=== PATIENT | male | born 1935 | race Caucasian/White ===

== ENCOUNTER 2017-12-22 01:09 | Observation (INO) ==
[2017-12-22] MEDS ORDERED: Naloxone 0.4 MG/ML INJ IVP PRN (06:26)
[2017-12-22] MEDS ORDERED: Nitroglycerin 0.4 MG TAB.SUBL SL PRN (06:28)
--- NOTE | 2017-12-22 06:30 | Internal Med History&Physical ---
Date of Encounter: 12/22/17 Time of Encounter: 06:15 Internal Medicine - H&P: HPI Chief complaint: Chest pain Admitted From: Hospital to Hospital Transfer Plans for Post Hospital Care: Home History of present illness: Mr. Morrison is a 82 year old male with past medical history of CADx 3 stents 2010 , hypertension, right nephrectomy due to kidney cancer presented to [facility] as a transfer from [facility] due to chest pain concerning for ACS. Initial troponin negative. Initial EKG: HR 91, ST depression leads II, III, AVF, V3-V6. Repeat EKG: HR 65, no ST or T wave changes, no indication of ischemia. WBC 11.9, hemoglobin 12.2, platelets 174, sodium 137, potassium 4.3, creatinine 1.97, BMP 97, Ddimer negative. Chest x-ray negative for acute cardiopulmonary process. Upon my examination of the patient he was alert and oriented times 3. He reported that the chest pressure began at 0630 in the morning on his drive to work. He said pain is similar to when he had cardiac stents placed in 2010. It was retrosternal with radiation to his left arm and back. He described it as a dull pressure that was worsened with exertion and relieved by 2 nitroglycerin. He also took 2 aspirin. Pain lasted about 25 minutes. He had associated shortness of breath. During his work day he took 2 more nitroglycerin for chest pressure. When he got home from work he had the increased dull chest pressure again where he took 2 more nitroglycerin and 2 aspirin then called EMS. He denied fever, chills, syncope, change in vision, diaphoresis, palpitations, nausea, vomiting, abdominal pain, dysuria. He reported that he has had head congestion and upper respiratory infection that he has been taking Levaquin since Tuesday. Upon my examination he does have reproducible chest tenderness but it is different from the dull chest pressure that he has been having. His resident services manager is Dr. Fraser. He has been compliant with his cardiac medications. He is a non-smoker, no alcohol, or drug use. He has no known family cardiac history. He is a full code. 10/28/2016 nuclear stress test: negative for ischemia or infarct 10/28/2016 TTE: EF 65%, moderate LV diastolic dysfunction, mild mitral regurgitation Past Med Surg Social Fam HX - Past Medical History Attestation: Yes The following information was validated with the patient. Source: patient Medical history: coronary artery disease, hyperlipidemia, hypertension Additional medical history: neuropathy, vertigo - Past Surgical History Surgical History: angioplasty/stent Additional surgical history: Right nephrectomy - Social History Smoking Status: Never smoker Smokeless Tobacco Status: No Alcohol use: none Drug use: none - Family History Father Name: Nas Morrison Living Status: Age at : 68 Cause of : chf Hx Family Cardiac Disorders: Yes Hx Family Respiratory Disorders: No Hx Family Cancer: No Hx Family GI Disorders: No Hx Family Genitourinary Disorders: No Hx Family Endocrine Disorder: No Hx Family Musculoskeletal Disorders: No Hx Family Neuromuscular Disorders: No Hx Family Neurologic Disorders: No Internal Medicine - H&P: Meds Ambien 5 mg PO HS 12/22/17 [History] Atorvastatin 25 mg PO BID 12/22/17 [History] Carvedilol [Coreg] 25 mg PO BID 12/22/17 [History] Clopidogrel [Plavix] 75 mg PO DAILY 12/22/17 [History] Losartan 25 mg PO DAILY 12/22/17 [History] Nitroglycerin 0.4 mg SL PRN PRN 12/22/17 [History] 3 Allergy/AdvReac Type Severity Reaction Status Date / Time iodine AdvReac Swelling Verified 10/28/16 11:15 of Lip/Tongue/Throat shellfish derived AdvReac Swelling Verified 10/28/16 11:15 of Lip/Tongue/Throat All Systems PM: A 10-system review of systems was performed and is negative for pertinent findings except as documented above in the HPI. - Constitutional Constitutional: no chills, no fever(s) - EENT Eyes: no blurry vision, no change in vision - Cardiovascular Cardiovascular ROS IM: chest pain, dyspnea on exertion, no diaphoresis, no edema , no lightheadedness, no orthopnea, no paroxysmal nocturnal dyspnea, no syncope - Respiratory Respiratory: no cough, no dyspnea, no wheezing - Gastrointestinal Gastrointestinal: no abdominal pain, no melena, no nausea, no vomiting - Genitourinary Genitourinary ROS male: no dysuria - Musculoskeletal Musculoskeletal ROS IM: no arthralgias - Integumentary Integumentary IM: no erythema, no new lesions - Neurological Neurological ROS: no dizziness, no headache(s) - Psychiatric Psychiatric: no confusion - Endocrine Endocrine IM: no fatigue - Constitutional Vitals: Temp Pulse Resp BP Pulse Ox 97.6 F 70 16 165/92 98 12/22/17 03:33 12/22/17 03:33 12/22/17 03:12/22/17 03:12/22/17 03:33 General appearance: Present: A&O X 3, pleasant, no acute distress - Head Head exam: Present: atraumatic, normocephalic - Eye Eye exam: Present: normal appearance, conjuntiva pink - Respiratory Respiratory exam: Present: chest wall tenderness, CTAB. Absent: rales, respiratory distress, rhonchi, wheezes - Cardiovascular Cardiovascular exam: Present: RRR, +S1, +S2. Absent: systolic murmur - GI/Abdominal GI/Abdominal exam: Present: normal bowel sounds, soft. Absent: firm, guarding, tenderness - Extremities Exam Extremities exam: Present: normal inspection. Absent: pedal edema, tenderness - Neurological Exam Neurological exam: Present: alert, oriented X3 - Psychiatric Psychiatric exam: Present: normal affect, normal mood - Skin Skin exam: Present: dry, intact - Assessment and plan (1) Chest pain Current Visit: Yes Status: Acute Assessment and plan: Typical chest pain concerning for unstable angina. Transfer from [facility] due to chest pain concerning for ACS. Chest pain is pressure like in center of chest with radiation to left arm and back. Similar to when he had stents placed. Worsened with exertion and relieved by Nitro. Lasting 25 minutes. Associated shortness of breath. He has been compliant with his medications. -Initial troponin negative. Initial EKG: HR 91, ST depression leads II, III, AVF, V3-V6. Repeat EKG: HR 65, no ST or T wave changes, no indication of ischemia. -PMH: CADx 3 stents 2010, hypertension -His resident services manager is Dr. Fraser -10/28/2016 nuclear stress test: negative for ischemia or infarct -10/28/2016 TTE: EF 65%, moderate LV diastolic dysfunction, mild mitral regurgitation Plan -trending troponin -echocardiogram ordered -nuclear stress test ordered -nitroglycerin PRN -continue home Plavix, Lipitor -aspirin 81 mg -NPO Qualifiers: Chest pain type: unspecified Qualified Code(s): R07.9 - Chest pain, unspecified (2) Elevated WBC count Current Visit: Yes Status: Acute Assessment and plan: Elevated WBC 11.9 likely secondary to patient reporting he is had a sinus infection and has been taking Levaquin since Tuesday prescribed by his PCP. 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 -Will continue the patient's course treatment of Levaquin so not to interrupt the antibiotic treatment and cause resistance. -Will continue to monitor WBC Qualifiers: Leukocytosis type: unspecified Qualified Code(s): D72.829 - Elevated white blood cell count, unspecified (3) Elevated serum creatinine Current Visit: Yes Status: Acute Assessment and plan: Elevated serum creatinine 1.97 (at baseline) likely due to right nephrectomy. -Will continue to monitor renal function -avoid nephrotoxic agents -monitor I&O (4) Coronary artery disease Current Visit: Yes Status: Acute Assessment and plan: History of coronary artery disease with 3 stents, 2010. 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 Samuels. (7) DVT prophylaxis Current Visit: Yes Status: Acute Assessment and plan: Heparin SQ - Time Spent With Patient Total time spent is greater than 50% in coordination of care (as documented) at patient's floor/unit and/or counseling patient:
[2017-12-22 07:04] LABS: Basophils % 0.2 %; Eosinophils % 0.1 %; Hematocrit 35.7 % (37.5-50.1); Hemoglobin 11.9 g/dL (12.9-16.9); Immature Granulocytes % 0.7 % (0-4); Lymphocytes # 1.8 K/mcL (0.6-4.6); Lymphocytes % 19.9 %; Mean Corpuscular HGB Conc 33.3 g/dL (31.6-35.5); Mean Corpuscular Hemoglobin 30.1 pg (28.0-33.3); Mean Corpuscular Volume 90.4 fL (83.0-100.0); Mean Platelet Volume 9.5 fL (9.4-12.4); Monocytes # 0.6 K/mcL (0.0-1.3); Monocytes % 7.1 %; Neutrophils # 6.3 K/mcL (1.6-8.9); Platelet Count 139 K/mcL (140-400); Red Blood Count 3.95 M/mcL (4.19-5.50); Red Cell Distribution Width 13.2 % (11.5-14.5)
[2017-12-22 07:21] LABS: Calcium 9.2 mg/dL (8.6-10.3); Potassium 4.3 mEq/L (3.5-5.1)
[2017-12-22] MEDS: Aspirin 81 MG TAB.CHEW PO SCH (09:31)
--- NOTE | 2017-12-22 13:42 | Internal Med Progress Note ---
<Cosme West - Last Filed: 12/22/17 16:54> Date of Encounter: 12/22/17 Time of Encounter: 10:00 - Assessment and plan (1) Chest pain Current Visit: Yes Status: Acute Assessment and plan: - Has had a multiple history of retrosternal chest pain in the past secondary to extertion. Likely unstable angina - Initial workup in the ER was positive for ST depression in II, IIII and aVF, V3-V6. Troponins are negative. Repeat EKG was unremarkable. - Patient on telemetry, supplementary oxygen, IV access. - Continue home Plavix, Lipitor, beta kenyon, aspirin 81 mg. Nitroglycerin PRN. . -Stress test tomorrow. NPO after midnight. Qualifiers: Chest pain type: unspecified Qualified Code(s): R07.9 - Chest pain, unspecified (2) Coronary artery disease Current Visit: Yes Status: Acute Assessment and plan: - Patient has a history of coronary artery disease, s/p 3 stents in 2010. - He continues to be on ASA 81, Plavix, statins. - His prior stress test was negative. He's getting another stress test tomorrow. Qualifiers: Qualified Code(s): I25.10 - Atherosclerotic heart disease of [place] coronary artery without angina pectoris (3) Hypertension Current Visit: Yes Status: Acute Assessment and plan: - Patient has a chronic history of hypertension. - Takes Losartan for blood pressure control at home. - We will keep him on his home antihypertensive medications. - Qualifiers: Hypertension type: essential hypertension Qualified Code(s): I10 - Essential (primary) hypertension (4) Elevated serum creatinine Current Visit: Yes Status: Acute Assessment and plan: -Will continue to monitor renal function -avoid nephrotoxic agents -monitor I&O (5) DVT prophylaxis Current Visit: Yes Status: Acute Assessment and plan: Heparin SQ - Time Spent With Patient Total time spent is greater than 50% in coordination of care (as documented) at patient's floor/unit and/or counseling patient: - Subjective Interval history: Mr. Morrison is a 82-year-old male with a past medical history of CAD 3 stents in 2010, hypertension, hyperlipidemia is admitted to [facility] because of retrosternal chest pain that began yesterday when he was going to work. Patient has had multiple symptoms like these in the past but endorses that most of the time the symptoms have resolved after nitroglycerin. However this time patient endorses that he took 2 nitroglycerin for the pain that lasted 25 minutes when he was driving to work, and then took 2 more nitroglycerin while at work. He also took 2 aspirin ,and owing to perisistant discomfot, he called the EMS. He takes losartan for his blood pressure, is compliant on his beta kenyon aspirin and Plavix. 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 Patient is a nonsmoker, no alcohol, or drug abuse. Today he endorses no acute distress. He endorses his chest pain is better than what it was yesterday, he denies diaphoresis, palpitations, belly pain. - Constitutional Vitals: Temp Pulse Resp BP Pulse Ox 97.9 F 62 16 163/86 98 12/22/17 11:02 12/22/17 11:02 12/22/17 11:02 12/22/17 11:02 12/22/17 11:02 General appearance: Present: A&O X 3, pleasant, no acute distress - Head Head exam: Present: atraumatic, normal inspection, normocephalic - Respiratory Additional comments: Clear to auscultation bilaterally, no wheezing, rhonchi or rales. - Cardiovascular Additional comments: Regular rate and rhythm, no gallops, murmurs or rubs. - GI/Abdominal Additional comments: No belly pain, no guarding or rebound tenderness, belly soft and nontender. - Extremities Exam Additional comments: Pulses symmetrical bilaterally, skin warm, range of motion appropriate for his condition. Internal Medicine: Result - Labs CBC & Chem 7: 12/22/17 06:50 12/22/17 06:50 Labs: Short CBC 12/22/17 Range/Units 06:50 WBC 8.8 (4.3-11.1) K/mcL Hgb 11.9 L (12.9-16.9) g/dL Hct 35.7 L (37.5-50.1) % Plt Count 139 L (140-400) K/mcL Neutrophils # 6.3 (1.6-8.9) K/mcL BMP 12/22/17 06:50 Sodium 141 Potassium 4.3 Chloride 108 H Carbon Dioxide 21 L BUN 38 H Creatinine 1.69 H Glucose 99 Calcium 9.2 Cardiac Enzymes 12/22/17 Range/Units 06:50 Troponin I < 0.03 (< 0.04) ng/mL Consult Discharge Plan - Plan Referrals: Anibal De Luna MD [Primary Care Provider] - <Akira Kerns - Last Filed: 12/22/17 17:41> Date of Encounter: 12/22/17 - Assessment and plan (1) Chest pain Current Visit: Yes Status: Acute Qualifiers: Chest pain type: unspecified Qualified Code(s): R07.9 - Chest pain, unspecified (2) Coronary artery disease Current Visit: Yes Status: Acute Qualifiers: Qualified Code(s): I25.10 - Atherosclerotic heart disease of [place] coronary artery without angina pectoris (3) Hypertension Current Visit: Yes Status: Acute Qualifiers: Hypertension type: essential hypertension Qualified Code(s): I10 - Essential (primary) hypertension (4) Elevated serum creatinine Current Visit: Yes Status: Acute (5) DVT prophylaxis Current Visit: Yes Status: Acute - Time Spent With Patient Total time spent is greater than 50% in coordination of care (as documented) at patient's floor/unit and/or counseling patient: - Constitutional Vitals: Temp Pulse Resp BP Pulse Ox 97.9 F 66 16 142/65 97 12/22/17 16:04 12/22/17 16:04 12/22/17 16:04 12/22/17 16:04 12/22/17 16:04 Internal Medicine: Result - Labs CBC & Chem 7: 12/22/17 06:50 12/22/17 06:50 Labs: Short CBC 12/22/17 Range/Units 06:50 WBC 8.8 (4.3-11.1) K/mcL Hgb 11.9 L (12.9-16.9) g/dL Hct 35.7 L (37.5-50.1) % Plt Count 139 L (140-400) K/mcL Neutrophils # 6.3 (1.6-8.9) K/mcL BMP 12/22/17 06:50 Sodium 141 Potassium 4.3 Chloride 108 H Carbon Dioxide 21 L BUN 38 H Creatinine 1.69 H Glucose 99 Calcium 9.2 Cardiac Enzymes 12/22/17 12/22/17 Range/Units 06:50 12:42 Troponin I < 0.03 < 0.03 (< 0.04) ng/mL - Impressions Impressions Echocardiogram 12/22/17 06:28 Impressions: LVEF 60-65%. Normal LV chamber size and function. Mild concentric left ventricular hypertrophy. Mild left ventricular diastolic dysfunction. Normal right ventricular structure and function. Mild mitral regurgitation. No evidence of pulmonary hypertension. Left Ventricular Wall Motion: Rest Echo Findings All wall segments showed normal motion. Findings: Study Quality * Technically adequate exam. ECG Findings * Normal sinus rhythm. Left Ventricle * LVEF 60-65%. * Normal LV chamber size and function. * Mild concentric left ventricular hypertrophy. * Mild left ventricular diastolic dysfunction. Right Ventricle * Normal right ventricular structure and function. Left Atrium * Moderately dilated left atrium. Right Atrium * Mildly dilated right atrium. Aortic Valve * Trileaflet aortic valve. * Mildly calcified aortic valve leaflets. * Trace aortic regurgitation. * No aortic stenosis. Mitral Valve * Mild mitral annular calcification * Mildly thickened mitral valve leaflets. * Mild mitral regurgitation. * No mitral stenosis. Tricuspid Valve * Normal tricuspid valve structure and function. * Trace tricuspid regurgitation. * No evidence of pulmonary hypertension. Pulmonic Valve * Normal pulmonic valve structure and function. * No pulmonic regurgitation. Aorta * Normally sized aortic root. Pericardium * The pericardium appears normal. IVC * Normal IVC dimensions and inspiratory collapse. Pulmonary Artery * Normal visualized portions of the main pulmonary artery. - Attending Attestation I examined this patient and my medical decision-making was reviewed with the Resident Physician Dr. West. I agree with the documented findings, disposition and treatment plan as described except to the extent set forth below. Mr. Morrison is a 82 year old male with past medical history of CADx 3 stents 2010 , hypertension, right nephrectomy due to kidney cancer presented to [facility] as a transfer from [facility] due to chest pain concerning for ACS. Initial troponin negative. Pt denied any active CP now. Gen: A, A, O x 3 Chest: Diminished BS b/l Heart: S1S2+ RRR a/p 1. Acute CP need to r.o ACS So far neg trop scheduled for stress test in AM 2. CKD-3 Stable cr 3. HTN resumed home meds
[2017-12-22] MEDS: *HR* Heparin 5,000 UNIT/ML VIAL SQ SCH ×2 (15:03→21:32)
[2017-12-22] MEDS: Acetaminophen 325 MG TABLET PO PRN (23:15)
[2017-12-23] MEDS: *HR* Heparin 5,000 UNIT/ML VIAL SQ SCH (06:17)
[2017-12-23] MEDS ORDERED: Regadenoson 0.4 MG/5 ML SYRINGE IVP ONE (06:39)
[2017-12-23 07:18] LABS: Basophils # 0.1 K/mcL (0.0-0.2); Basophils % 0.8 %; Eosinophils # 0.1 K/mcL (0.0-0.6); Eosinophils % 1.4 %; Hematocrit 40.9 % (37.5-50.1); Hemoglobin 13.4 g/dL (12.9-16.9); Immature Granulocytes % 0.6 % (0-4); Lymphocytes # 2.2 K/mcL (0.6-4.6); Lymphocytes % 34.7 %; Mean Corpuscular HGB Conc 32.8 g/dL (31.6-35.5); Mean Corpuscular Hemoglobin 29.7 pg (28.0-33.3); Mean Corpuscular Volume 90.7 fL (83.0-100.0); Mean Platelet Volume 9.5 fL (9.4-12.4); Monocytes # 0.5 K/mcL (0.0-1.3); Monocytes % 7.4 %; Neutrophils # 3.5 K/mcL (1.6-8.9); Platelet Count 163 K/mcL (140-400); Red Blood Count 4.51 M/mcL (4.19-5.50); Red Cell Distribution Width 13.3 % (11.5-14.5); Segmented Neutrophils % 55.1 %
[2017-12-23 07:33] LABS: Calcium 9.3 mg/dL (8.6-10.3); Potassium 4.2 mEq/L (3.5-5.1)
[2017-12-23] MEDS ORDERED: [Fish Oil 1,000 Mg PO SCH (09:00)
[2017-12-23] MEDS ORDERED: Cholecalciferol (D-3) 1,000 UNIT TABLET PO SCH (09:00)
--- NOTE | 2017-12-23 11:44 | Discharge Summary ---
<Cosme West - Last Filed: 12/23/17 17:34> - NOTES TO OUTPATIENT PROVIDER Notes to Outpatient Provider: - f/u with cardioloigst on a regular basisi. - continue his beta kenyon, statins, ASA. 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 CKD3 Orders not resulted at time of discharge: Pending orders 12/23/17 06:00 NM mega perf SPECT multi [NM] Routine Date of Encounter: 12/23/17 Time of Encounter: 10:00 - Discharge Diagnosis (1) Chest pain Priority: Primary Status: Acute Qualifiers: Chest pain type: unspecified Qualified Code(s): R07.9 - Chest pain, unspecified (2) Coronary artery disease Priority: Secondary Status: Acute (3) Hypertension Priority: Secondary Status: Acute Qualifiers: Hypertension type: essential hypertension Qualified Code(s): I10 - Essential (primary) hypertension (4) DVT prophylaxis Priority: Secondary Status: Acute (5) CKD (chronic kidney disease) Priority: Secondary Status: Acute Qualifiers: Qualified Code(s): N18.3 - Chronic kidney disease, stage 3 (moderate) Hospital course: Mr. Morrison is a 82 year old male with a past medical history of CAD status post stents, hypertension, right nephrectomy secondary to kidney cancer who came as a transfer from [facility] because of retrosternal chest pain and pressure that started at 6:30 in the morning when he was going to work. Patient has had multiple symptoms like these in the past but endorses that most of the time the symptoms have resolved after nitroglycerin. However this time patient endorses that he took 2 nitroglycerin for the pain that lasted 25 minutes when he was driving to work, and then took 2 more nitroglycerin while at work. Patient's troponin were negative on admission, initial EKG was positive for ST depression in II, III and aVF , V3-V6 , but the repeat EKG was unremarkable. During the course of his hospital stay, patient underwent the pharmacologic stress test, to which the patient had a normal hemodynamic response. There was no evidence for ischemia at the level of heart rate achieved. Patient did not endorse any acute distress, chest pain during the course of the hospital stay. Patient has been instructed to continue with his Plavix, beta kenyon, aspirin and Lipitor. He has also been told to follow up with his brick grader as an outpatient. He has also been instructed to follow-up with his gift shop assistant for his CKD3. Patient has been advised to eat plenty of fruits, vegetables and whole grains, and avoid too much salt in his diet. As then instructed to RTC ever has similar symptoms in the future, he should immediately present to the ED. - Time Spent with Patient Total time spent providing and/or coordinating discharge services: - Discharge Medications Prescriptions: Tramadol HCl [Ultram] 50 mg PO TID PRN 7 Days #20 tab PRN Reason: Pain Home Medications: Aspirin [Lo-Dose Aspirin EC] 81 mg PO DAILY 12/22/17 [History] Atorvastatin [Lipitor] 40 mg PO HS 12/22/17 [History] Carvedilol [Coreg] 25 mg PO BID 12/22/17 [History] Cholecalciferol (D-3) [Vitamin D] 5,000 unit PO DAILY 12/22/17 [History] Clopidogrel [Plavix] 75 mg PO DAILY 12/22/17 [History] Losartan/Hydrochlorothiazide [Losartan-Hctz 100-25 mg Tab] 1 tab PO DAILY [History] Nitroglycerin [Nitrostat] 0.4 mg SL Q5M PRN MDD 3 DOSES CALL 911 12/22/17 [ History] [place]-3/Dha/Epa/Fish Oil [Fish Oil 1,000 mg Softgel] 1 cap PO DAILY 12/22/17 [ History] Zolpidem [Ambien] 10 mg PO HS 12/22/17 [History] Losartan [Cozaar] 25 mg PO DAILY tablet 12/23/17 [Rx] Tramadol HCl [Ultram] 50 mg PO TID PRN 7 Days #20 tab 12/23/17 [Rx] Allergies/Adverse Reactions: 3 Allergy/AdvReac Type Severity Reaction Status Date / Time iodine AdvReac Swelling Verified 10/28/16 11:15 of Lip/Tongue/Throat shellfish derived AdvReac Swelling Verified 10/28/16 11:15 of Lip/Tongue/Throat Date of admission: 12/22/17 03:06 Primary care physician: Anibal De Luna MD - Constitutional Vitals: Temp Pulse Resp BP Pulse Ox 98 F 64 16 168/87 94 12/23/17 07:29 07/27/18 07:29 12/23/17 07:29 12/23/17 07:29 12/23/17 07:29 General appearance: Present: A&O X 3, pleasant, no acute distress - Head Head exam: Present: atraumatic, normal inspection, normocephalic - Respiratory Additional comments: Clear to auscultation bilaterally, no wheezing, rhonchi or rales. - Cardiovascular Additional comments: Regular rate and rhythm, no gallops, murmurs or rubs. - GI/Abdominal Additional comments: No belly pain, no guarding or rebound tenderness, belly soft and nontender. - Extremities Exam Additional comments: Pulses symmetrical bilaterally, skin warm, range of motion appropriate for his condition. - Patient Status Disposition: Home, Self-Care Condition: Good Functional capacity at discharge: independent ambulation Overall status at discharge: patient is progressing back to baseline - Discharge Instructions Instructions: Tramadol (By mouth), Chest Pain (DC) Follow Up With: Anibal De Luna MD [Primary Care Provider] - 12/29/17 12:30 pm (Doctor Annamarie is no longer in this office. patient will be seeing Doctor Fabricio Dorman.) Forms: Work/School Release - Diet and Activity Activity: increase activity as tolerated Diet: low fat, low cholesterol <Akira Kerns - Last Filed: 12/23/17 18:08> Orders not resulted at time of discharge: Pending orders 12/23/17 06:00 NM mega perf SPECT multi [NM] Routine Date of Encounter: 12/23/17 - Discharge Diagnosis (1) Chest pain Status: Acute Qualifiers: Chest pain type: unspecified Qualified Code(s): R07.9 - Chest pain, unspecified (2) Coronary artery disease Status: Acute Qualifiers: Qualified Code(s): I25.10 - Atherosclerotic heart disease of [place] coronary artery without angina pectoris (3) Hypertension Status: Acute Qualifiers: Hypertension type: essential hypertension Qualified Code(s): I10 - Essential (primary) hypertension (4) DVT prophylaxis Status: Acute (5) CKD (chronic kidney disease) Status: Acute Qualifiers: Qualified Code(s): N18.3 - Chronic kidney disease, stage 3 (moderate) Hospital course: Mr. Morrison is a 82 year old male - Time Spent with Patient Total time spent providing and/or coordinating discharge services: Date of admission: 12/22/17 03:06 Primary care physician: Anibal De Luna MD - Constitutional Vitals: Temp Pulse Resp BP Pulse Ox 97.6 F 65 16 140/86 98 12/23/17 15:06 12/23/17 15:06 12/23/17 15:06 12/23/17 15:06 12/23/17 15:06 - Attending Attestation I examined this patient and my medical decision-making was reviewed with the Resident Physician Dr. West. I agree with the documented findings, disposition and treatment plan as described except to the extent set forth below. Mr. Morrison is a 82 year old male with past medical history of CADx 3 stents 2010 , hypertension, right nephrectomy due to kidney cancer presented to [facility] as a transfer from [facility] due to chest pain concerning for ACS. Initial troponin negative. Pt denied any active CP now. Gen: A, A, O x 3 Chest: Diminished BS b/l Heart: S1S2+ RRR a/p 1. Acute CP So far neg trop stress test came back as negative for ischemia. 2. CKD-3 Stable cr 3. HTN stable with current home meds will d/c home in stable condition today
[2017-12-23] MEDS: Acetaminophen 325 MG TABLET PO PRN (12:43)
[2017-12-23] MEDS: Aspirin 81 MG TAB.CHEW PO SCH (12:43)
[2017-12-23 15:09] VITALS: BP 140/86
[2017-12-23] MEDS ORDERED: traMADol 50 MG TABLET PO PRN (15:56)
== END 2017-12-23 17:44 | disposition home or self-care (01) ==
LOC: 2NENU
PROVIDERS: ADMIT Family Medicine; ATTEND Family Medicine

== ENCOUNTER 2018-01-03 07:29 | Inpatient (IN) ==
[2018-01-03] MEDS ORDERED: Heparin 1,000 UNITS/500 mL 500 ML ONE (07:49)
[2018-01-03] MEDS ORDERED: ISOVUE-370 200 ML INFUS..BTL IV ONE (07:49)
[2018-01-03] MEDS ORDERED: *HR* Heparin 10,000 UNIT/10 ML VIAL ONE (07:49)
[2018-01-03] MEDS ORDERED: Nitroglycerin 1,000 MCG/10 ML VIAL IV ONE (07:49)
[2018-01-03] MEDS ORDERED: 0.9 % Sodium Chloride 1,000 ML ONE (08:03)
--- NOTE | 2018-01-03 08:58 | History & Physical Report ---
Date of Encounter: 01/03/18 Time of Encounter: 08:55 24 Hour HP Update - Instructions Instructions: If the History and Physical is less than 30 days old and was completed prior to A.M. admission and or procedure and has NOT been updated on calendar day of procedure please complete this update prior to performing procedure. - Update Patient reports changes in Medical Condition: No Changes in examination, assessment, or condition: No Changes in Medication: No Preop tests/diagnostics Reviewed: Yes Surgery Remains Indicated: Yes Consent for Planned Operative Procedure(s) Verified: Yes - Pre-Operative Checklist Preoperative Checklist Indicated: No Prophylactic Antibiotic Ordered: No Home Medications Include Beta Keely: Yes Beta Keely Taken Today (Day of Surgery): Yes Beta Keely Taken Yesterday (Day Prior to Surgery): Yes Is VTE Prophylaxis Indicated?: NO
--- NOTE | 2018-01-03 08:58 | Pre-Sedation Evaluation ---
Pre-sedation evaluation - Pre-sedation checklist Date of procedure: 01/03/18 Procedure: [facility] Recent Vitals: Last Vital Signs Temp 98.6 F 01/03/18 08:05 Pulse 81 01/03/18 08:05 Resp 18 01/03/18 08:05 BP 167/93 01/03/18 08:05 Pulse Ox 98 01/03/18 08:05 H&P (including ROS) documented in medical record: Yes Previous reaction to sedatives/anesthetics: No Dietary Status: NPO after Midnight Airway Assessment: Patient can open mouth completely, TMJ function normal, Micrognathia (under-bite, receding chin) absent, Neck with adequate range of motion Dentition: No loose teeth or bridges Possible difficult airway: No ASA Classification *see protocol: CLASS II-Mild systemic disease Plan of Care: Pt appropriate candidate for procedure/moderate/conscious sedation , Risks/benefits of procedure/sedation discussed w/ patient/family Cardiac Registry (Cardio Only) - Functional Capacity Functional Capacity: >=4 METS with symptoms - Clincal Frailty Scale Clinical Frailty Scale: Vulnerable
[2018-01-03] MEDS ORDERED: methylPREDNISolone 125 MG/2 ML VIAL ONE (09:03)
[2018-01-03] MEDS ORDERED: *HR* Midazolam HCl 2 MG/2 ML VIAL ONE (09:03)
[2018-01-03] MEDS ORDERED: *HR* FentaNYL (PF) 100 MCG/2 ML VIAL ONE (09:03)
[2018-01-03] MEDS ORDERED: traMADol 50 MG TABLET PO PRN ×2 (09:56→10:11)
[2018-01-03] MEDS ORDERED: Nitroglycerin 0.4 MG TAB.SUBL SL PRN (09:56)
[2018-01-03] MEDS ORDERED: Acetaminophen 325 MG TABLET PO PRN (09:58)
[2018-01-03] MEDS ORDERED: 0.9 % Sodium Chloride 1,000 ML IVC SCH (10:00)
--- NOTE | 2018-01-03 10:11 | Invasive Diagnostic Lab Proc ---
Name: Spike Morrison Date of Study: 01/03/2018 Date: 1935 Ht: 69.5in Medical Record#: [id number] Age: 82 Wt: 185.41lb Gender: Male BSA: 2.01 Order #: [id number] BMI: 27 Physicians Procedure Physician: Nicky Ramos MD, FACC Referring MD: Sharath Fraser MD Referring MD: Anibal De Luna MD Staff Name Position Time In Emma Perrin RN Monitor 09:04 AM Coco Restrepo RN Mid Level Project Manager 09:05 AM Ivan García RN Nurse 09:05 AM Reema Beckett RT (R) Scrub 09:11 AM Indications Indication Unstable Angina Procedures Performed Procedure L HRT ARTERY/VENTRICLE ANGIO Pre-Procedure Checklist Informed consent is complete signed and on chart. H&P is on chart. ID band is on and ID verified with patient. Patient NPO for procedure The procedure was described for the patient and questions were answered. Blood Pressure: 167/93 ECG is on chart. Rhythm: NSR Plan of Care Patient will tolerate the procedure without complications. Adequate level of comfort will be maintained. Hemodynamics will remain stable Patient will recover from procedure without complications. Respiratory function will be maintained. Cardiac rhythm will remain stable. Patient temperature will be maintained. Patient and/or family have verbalized understanding of the procedure. Patient Education Chief Complaint/Reason for Test: Cardiac Cath Developmental Category: Geriatric (65+ years) Developmentally Appropriate for Age: Yes Learning Barriers: None Education Needs: Procedure Education Method: Verbal Information Taught: Cardiac Cath Educational Evaluation: Able to repeat information Intravenous Access Time IV Size Location DC'd Fluid/Drip Rate Units RN 08:11 AM Started with 20g 1 1/4" Lt Antecubital 0.9NaCl 100 ml/hr Luz Maria Martinez RN Allergies Iodinated Contrast- Oral and IV Dye lisinopril amlodipine iodine shellfish derived Shellfish Vital Signs Time BP (mmHg) HR (bpm) O2 Sat. RR (bpm) LOC 08:10 AM 167 / 93 78 97 % 18 5 = Fully awake and oriented or at pre-proc level 09:03 AM / % 5 = Fully awake and oriented or at pre-proc level 09:03 AM / % 4 = Oriented but drowsy 09:18 AM / % 4 = Oriented but drowsy 09:06 AM 162 / 99 122 98 % 19 09:11 AM 167 / 97 78 98 % 15 09:16 AM 154 / 91 72 98 % 21 09:21 AM 139 / 80 71 97 % 23 09:26 AM 134 / 70 75 97 % 30 09:31 AM 138 / 77 72 97 % 19 09:36 AM 153 / 91 77 97 % 15 Procedural Medications Time Medication Dose Units Method Given By 09:03 AM Oxygen 2 L/min nasal cannula Coco Restrepo RN 09:05 AM Benadryl 25 mg Intravenous Coco Restrepo RN 09:07 AM Solu-medrol 125 mg Intravenous Coco Restrepo RN 09:08 AM Versed 1 mg Intravenous SoummCoco olivares RN 09:08 AM Fentanyl 25 mcg Intravenous Coco Restrepo RN 09:16 AM Versed 1 mg Intravenous Coco Restrepo RN 09:17 AM Fentanyl 25 mcg Intravenous Coco Restrepo RN ASA Classification: CLASS II- Mild systemic disease (i.e. well-controlled diabetes, hypertension, asthma, cigarette smoking) Matt Score Preprocedure Postprocedure Activity 2- Moves 4 extremities sustained head lift Activity 2- Moves 4 extremities sustained head lift Circulation 2- SBP +/= 20 points of pre-anesthetic level Circulation 2- SBP +/= 20 points of pre-anesthetic level Consciousness 2- Awake and alert oriented x 3 Consciousness 2- Awake and alert oriented x 3 O2 Saturation 2- Able to maintain O2 satruation of 92% on room air O2 Saturation 2- Able to maintain O2 satruation of 92% on room air Respiratory 2- Able to deep breathe and cough well Respiratory 2- Able to deep breathe and cough well Total Score 10 Total Score 10 Contrast Agent: Isovue Diagnostic Contrast: 53 ml Total Contrast: 53 ml Fluoro Dose: 2766 mGy Procedure Log Time Note Enter By 08:02 AM pt took home dose of Prednisone in holding room, 60mg PO [email or web address] 09:00 AM 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 [facility] AM Procedure start 09:02 allihan 09:03 AM Time: 09:03 Patient comfortable and pain free: Yes [facility] AM Time: 09:03LOC: 5 = Fully awake and oriented or at pre-proc level [facility] AM Time: 09:03 Oxygen on at 2 L/min per nasal cannula by Coco Restrepo [facility] 09[facility]04 AM Patient charges- Angio tray pack, Navilyst 3mm J, Pulse Oximetry and ACIST tubing and transducer [facility] 09:04 AM IV Supplies used: J loop Angio Cath. [facility] : AM Case Delayed no [facility] :04 AM Hair removed from procedure site in holding area using clippers. Bilateral groin prepped with Chloraprep by Ivan García RN, then patient was draped. Skin intact. [facility] 09:05 Emma Perrin RN Position: Monitor Time in: :[address] [facility] 09[facility]05 AM Coco Restrepo RN Position: Mid Level Project Manager Time in: : [facility]05 AM Ivan García RN Position: Nurse Time in: 09:[address] [facility]05 AM Vitals capture started with the following parameters, Patient=Adult, Interval=5 min, Initial Itxsnpph=956 mmHg, Deflation Rate=5 mmHg, Cuff placed on Right Arm 09:05 AM Time: 09:05 Benadryl 25 mg Intravenous Given by Coco [facility]repo [facility] 09:06 AM WF=548 bpm, TBAP=335/99 mmhg, SpO2=98.0 %, Resp=19 B/min, Comment=nsr 09:07 AM Time: 09:07 Solu-medrol 125 mg Intravenous Given by Coco Restrepo RN 09:08 AM Time: 09:08 Versed 1 mg Intravenous Given by Coco Restrepo RN 09:08 AM Time: 09:08 Fentanyl 25 mcg Intravenous Given by Coco Restrepo [facility] 09:11 AM Reema Beckett RT (R) Position: Scrub Time in: 09:[address] [facility] 09[facility]11 AM HR=78 bpm, UTRF=350/97 mmhg, SpO2=98.0 %, Resp=15 B/min, Comment=nsr 09:12 AM ASA Class CLASS II- Mild systemic disease (i.e. well-controlled diabetes, hypertension, asthma, cigarette smoking) [email or web address] 09:13 AM Pressure channel 1 zero failed. 09:13 AM Pressure channel 1 zero failed. 09:13 AM Pressure channel 1 zeroed. 09:16 AM HR=72 bpm, CGLE=107/91 mmhg, SpO2=98.0 %, Resp=21 B/min, EtCO2=20 mmHg, Comment=nsr 09:16 AM Clinical Presentation: Unstable angina jcallihan 09:16 AM Time out performed according to hospital policy [email or web address] 09:17 AM Time: 09:16 Versed 1 mg Intravenous Given by Coco Restrepo RN jcjuan manuel 09:17 AM Time: 09:17 Fentanyl 25 mcg Intravenous Given by Coco Restrepo RN jcjuan manuel 09:18 AM Time: 09:03LOC: 4 = Oriented but drowsy jcallihan 09:18 AM Time: 09:03 Patient comfortable and pain free: Yes [email or web address] 09:19 AM Access obtained by percutaneous puncture. 5Fr 10cm Terumo Speed[place] sheath placed in right Femoral artery. [id number] jcallihan 09:20 AM 5Fr FL 4 catheter inserted over the wire [facility] 09:20 AM LCA angiography performed in multiple views. [email or web address] 09:20 AM Recorded Pressure: Ao, HR=74, Condition=Condition 1 (Aorta) Ao 131/76/102 09:21 AM Recorded Pressure: Ao, HR=71, Condition=Condition 1 (Aorta) Ao 134/75/102 09:21 AM HR=71 bpm, BBOP=272/80 mmhg, SpO2=97.0 %, Resp=23 B/min, EtCO2=26 mmHg, Comment=nsr 09:22 AM Recorded Pressure: Ao, HR=77, Condition=Condition 1 (Aorta) Ao 130/75/101 09:23 AM Catheter removed [email or web address] 09:23 AM 5Fr FR 4 catheter inserted over the wire DN jcallihan 09:23 AM Recorded Pressure: Ao, HR=74, Condition=Condition 1 (Aorta) Ao 129/80/104 09:23 AM RCA angiography performed in multiple views. [email or web address] 09:24 AM Catheter removed jcallihan 09:26 AM 5Fr Pigtail catheter inserted over the wire DNC jcallihan 09:26 AM HR=75 bpm, QZWX=698/70 mmhg, SpO2=97.0 %, Resp=30 B/min, Comment=nsr 09:26 AM Pressure channel 1 zeroed. 09:27 AM Recorded Pressure: LV, HR=84, Condition=Condition 1 (Left Ventricle) LV 107/31/12 09:27 AM Recorded Pressure: LV, Ao, HR=78, Condition=Condition 1 (Left Ventricle) LV 116/21/23, (Aorta) Ao 121/70/96 09:28 AM Catheter selectively placed in left ventricle jcallihan 09:28 AM Bolus angiogram of left Ventricle complete: 8 ml/sec for a total of 24 mls jcallihan 09:28 AM Catheter removed jcallihan 09:28 AM Bolus angiogram of right Femoral complete: 4 ml/sec for a total of 7 mls jcallihan 09:29 AM Procedure completed at 09:29 01/03/2018 [email or web address] 09:29 AM Did you address PRICILA flow and Dominance? Yes [email or web address] 09:30 AM Coronary Dominance: right [email or web address] 09:30 AM Arterial sheath pulled, Mynx closure device used and was Successful [id number] S/N. jcallihan 09:31 AM HR=72 bpm, ZHPZ=549/77 mmhg, SpO2=97.0 %, Resp=19 B/min, Comment=nsr 09:31 AM Estimated Blood Loss: minimal jcallihan 09:31 AM Post ECG NSR jcallihan 09:32 AM Post Blood Pressure 138/77 jcallihan 09:32 AM 09:32 Post Pulses Bilateral DP & PT 2+ jcallihan 09:33 AM Time: 09:18 Patient comfortable and pain free: Yes jcallihan 09:33 AM Time: 09:18LOC: 4 = Oriented but drowsy jcallihan 09:34 AM Sign out completed: Radiation Dose 200 mGy, 2766 cGy/cm2 Fluoro Time: 2.8 Isovue 370 - 200ml contrast 53 ml given by Nicky Ramos MD, [facility]. Complications: NoneCardiac Rehab Consult needed: NoConfirmed administered medications: Yes jcallihan 09:34 AM Information taught Cardiac Cath and Mynx jcallihan 09:34 AM Education needs Procedure, Plan of Care, and Responsibilities of Patient in Care jcallihan 09:34 AM Learning barriers :None jcallihan 09:34 AM Education Methods Verbal jcallihan 09:34 AM Education evaluation Able to repeat information jcallihan 09:35 AM Site status No bleeding/hematoma - Rt Groin as reported by Reema Beckett RT (R) at 09:34 jcallihan 09:35 AM Opsite applied jcallihan 09:35 AM Delay to floor No jcallihan 09:35 AM Family placed in consult room. jcallihan 09:35 AM Complications: None jcallihan 09:36 AM HR=77 bpm, DIHO=221/91 mmhg, SpO2=97.0 %, Resp=15 B/min 09:39 AM Lesion found in Distal LMCA. Pre Stenosis: 90 Pre PRICILA Flow: jcallihan 09:40 AM Lesion found in Proximal RCA. Pre Stenosis: 50 Pre PRICILA Flow: jcallihan 09:40 AM Lesion found in Mid RCA. Pre Stenosis: 40 Pre PRICILA Flow: jcallihan 09:40 AM Lesion found in Proximal LAD. Pre Stenosis: 99 Pre PRICILA Flow: jcallihan 09:41 AM Lesion found in Proximal Circumflex. Pre Stenosis: 90 Pre PRICILA Flow: jcallihan 09:41 AM Lesion found in Mid Circumflex. Pre Stenosis: 50 Pre PRICILA Flow: jcallihan 09:41 AM Lesion found in Ramus. Pre Stenosis: 99 Pre PRICILA Flow: jcallihan 09:42 AM Left Main Coronary Artery with 90% stenosis jcallihan 09:42 AM Proximal Left Anterior Descending Coronary Artery with 99% stenosis. If graft is supplying this territory, 0 % stenosis. jcallihan 09:42 AM Circumflex, Obtuse Marginal, Left Posterior Descending, and Left Posterolateral Coronary Arteries with 90 % stenosis. If graft is supplying this area, 0 % stenosis jcallihan 09:42 AM Right Coronary, Right Posterior Descending Arteries with Right Posterolateral and Acute Marginal branches with 50 % stenosis. If graft is supplying this area, 0 % stenosis jcallihan 09:42 AM Ramus with 99% stenosis. If graft is supplying this area, 0 % stenosis jcallihan 09:[address] surgery consulted. is in surgery at this time. He will see patient once his surgery is completed jcallihan 09:44 AM Plavix, Effient or Brilinta given No jcallihan 09:44 AM Delay to floor No jcallihan 09:44 AM Patient out of room: 09:44 jcallihan 09:44 AM Complications: None jcallihan 09:44 AM Opsite applied jcallihan 09:50 AM Report given to Ninfa FELDER Pt taken to 2A Room #39. 09:50 [email or web address] Complications Complication None None None Hemodynamics Pressures Site Systolic/A Wave Diastolic/V Wave Mean AO 131 76 102 AO 134 75 102 AO 130 75 101 AO 129 80 104 LV 107 31 12 LV 116 21 23 AO 121 70 96 Post Procedure Information Blood Pressure: 138/77 mmHg Rhythm: NSR Post procedural instructions were given Surgery consult for CABG Closure Device Time Device Success/Fail 01/03/2018 9:34:00 AM Mechanical Compression Successful Site Checks Time Location Status Staff Sheath In? Note 09:34 AM Rt Groin No bleeding/hematoma Reema Beckett RT (R) Pulses Time Site Pre-Procedure Post-Procedure Note 01/03/2018 8:10:00 AM Bilateral DP & PT 2+ 01/03/2018 8:10:00 AM Bilateral radial 2+ 9:32:00 AM Bilateral DP & PT 2+ Updated by Ivan García RN on 01/03/2018 10:02:20 AM electronically signed on 01/03/2018 10:04:20 AM with status of Final
[2018-01-03] MEDS: 0.9 % Sodium Chloride 1,000 ML IVC SCH ×2 (10:23→16:34)
[2018-01-03] MEDS ORDERED: hydrALAZINE 10 MG TABLET PO SCH (12:00)
[2018-01-03] MEDS ORDERED: Nitroglycerin 1 INCH/GM PACKET TP SCH (13:45)
[2018-01-03] MEDS: hydrALAZINE 10 MG TABLET PO SCH ×2 (14:17→16:19)
[2018-01-03] MEDS ORDERED: Nitroglycerin 25 MG/250 ML INFUS..BTL IVC SCH (15:15)
--- NOTE | 2018-01-03 15:18 | Discharge Summary ---
Orders not resulted at time of discharge: Pending orders 01/03/18 14:25 EKG [ECG 12 lead ECG] [ECG] Stat 01/04/18 04:00 Basic Metabolic Panel AM 0400 Complete Blood Count [HEME] AM 0400 Date of Encounter: 01/03/18 Time of Encounter: 15:09 - Discharge Diagnosis (1) Coronary artery disease Priority: Primary Status: Acute Qualifiers: Coronary Disease-Associated Artery/Lesion type: [place] artery [place] vs. transplanted heart: [place] heart Associated angina: with unstable angina Qualified Code(s): I25.110 - Atherosclerotic heart disease of [place] coronary artery with unstable angina pectoris (2) Unstable angina Priority: Primary Status: Acute - Hospital Course Hospital course: Mr. Morrison is a 82 year old male with past medical history of CAD s/p PCI, HTN , HLD, CKD, renal cell cancer s/p nephrectomy in 2007 who presented for an elective cardiac catheterization. [facility] recommended for unstable angina. LHC completed today revealed severe three vessel CAD including 90% distal left main disease. There was no complication from his procedure. Options including CABG vs PCI vs medical management was discussed with patient. Due to on-going chest pain and likely high risk for CABG transfer for high risk PCI discussed. He was agreeable to transfer to [facility]. IV NTG was ordered for chest pain. Post C EKG shows NSR with no acute changes. [place] [facility] [place] contacted and transfer. Cardiac testing: [facility] report 01/03/18: EF normal. 90% stenosis distal LMCA. 50% pRCA, 40% mRCA, 99% pLAD, 90% pLCx , 50% mLCx , 99% ramus. TTE 12/22/17: EF 60-65%, mild LVH, mild diastolic dysfunction, mild MR. Stress test 12/23/17: negative for ischemia or infarct. - Time Spent with Patient Total time spent providing and/or coordinating discharge services: Greater than 30 minutes Specific discharge activities: 1hr, calling transfer center, med rec, d/c summary, discussion with patient - Discharge Medications Home Medications: Aspirin [Lo-Dose Aspirin EC] 81 mg PO DAILY 12/22/17 [History] Atorvastatin [Lipitor] 40 mg PO HS 12/22/17 [History] Carvedilol [Coreg] 25 mg PO BID 12/22/17 [History] Cholecalciferol (D-3) [Vitamin D] 5,000 unit PO DAILY 12/22/17 [History] Clopidogrel [Plavix] 75 mg PO DAILY 12/22/17 [History] Losartan/Hydrochlorothiazide [Losartan-Hctz 100-25 mg Tab] 1 tab PO DAILY [History] Nitroglycerin [Nitrostat] 0.4 mg SL Q5M PRN MDD 3 DOSES CALL 911 12/22/17 [ History] [place]-3/Dha/Epa/Fish Oil [Fish Oil 1,000 mg Softgel] 1 cap PO DAILY 12/22/17 [ History] Zolpidem [Ambien] 5 mg PO HS 12/22/17 [History] Tramadol HCl [Ultram] 50 mg PO TID PRN 7 Days #20 tab 12/23/17 [Rx] hydrALAZINE [HydrALAZINE] 10 mg PO Q6HR 01/03/18 [History] Allergies/Adverse Reactions: 3 Allergy/AdvReac Type Severity Reaction Status Date / Time amlodipine [From [facility]] Allergy Hives Verified 01/03/18 07:44 Iodinated Contrast- Oral and Allergy Anaphylaxis Verified 01/03/18 07:44 IV Dye iodine AdvReac Swelling Verified 10/28/16 11:15 of Lip/Tongue/Throat lisinopril AdvReac Cough Verified 01/03/18 07:44 shellfish derived AdvReac Swelling Verified 10/28/16 11:15 of Lip/Tongue/Throat Date of admission: 01/03/18 09:47 Primary care physician: Anibal De Luna MD Consults: 01/03/18 09:59 Consult to Cardiothoracic Surgery [CONS] Routine Consulting Provider: Cardiothoracic Surgery [place] Reason for Consult: 3VCAD, L main disease, eval for CABG Call Completed: Yes Discharging clinician: Maco Herndon Anticipated date of discharge: 01/03/18 Physical Examination Vital Signs, Last 4 Hours Temp Pulse Resp BP Pulse Ox 01/03/18 14:44 97.6 F 84 18 145/86 95 01/03/18 12:00 74 16 166/81 95 01/03/18 11:30 71 16 157/80 96 General: Conversant, No Apparent Distress HEENT: Atraumatic, Normocephaly, Mucus Membranes Moist Neck: No JVD, Normal carotid pulses Cardiac: Reg Rate and Rhythm, Normal S1 and S2, No Murmur Lungs: Normal Breath Sounds, No Wheeze, Rales, Rhonchi Neuro: Alert and responsive, No focal deficits noted Abdomen: Soft, Non-Tender Skin: No rashes noted on visualized skin Musculoskeletal: No Chest Wall Tenderness Extremities: No Clubbing, No Cyanosis, No Edema, Normal Pulses, Other (Right femoral access with dressing intact. No hematoma.) - Patient Status Disposition: Transfer Critical Access Hosp Condition: Fair Overall status at discharge: patient is not back to baseline - Discharge Instructions Follow Up With: Anibal De Luna MD [Primary Care Provider] - Sharath Fraser MD [Partnered Physician] - - Diet and Activity Activity: other (bed rest) Diet: low fat, low cholesterol
--- NOTE | 2018-01-03 16:43 | Cardiothoracic Consult Note ---
Date of Encounter: 01/03/18 Time of Encounter: 16:43 Assessment and Plan (1) Coronary artery disease Current Visit: No Status: Acute The patient is an 82-year-old hypertensive man with known CAD and hypercholesterolemia. His cardiac history dates back to at least 2010 which time he underwent PCI with stent placement at 2 institutions. One procedure was performed at [facility] and the second was performed at [facility]. (No reports are present and the medical record for review.) Last week, the patient experienced substernal chest pain and intrascapular pain which lasted for several hours. He took sublingual nitroglycerin without relief and was eventually evaluated at [facility]. His pain resolved and he was transferred to [facility] for further care. At that time he had no elevation in his troponin I levels and was recommended for outpatient cardiac workup. A nuclear stress test revealed an LVEF 62% without evidence of ischemia or infarction. Given his presenting symptoms, cardiac risk factors, and previous catheter interventions, he was recommended for cardiac catheterization. This procedure performed today revealed severe 3 vessel CAD. In particular the patient has a 70-80% distal left main lesion, an 80% proximal LAD lesion, a 99% proximal ramus intermediate branch lesion, and a 50% proximal LCx lesion. Unfortunately , the distal portions of the LAD and ramus intermediate branch are small and probably not bypassable. I recommend that the patient undergo high risk PCI and stent placement. The patient will be transferred to [facility] for evaluation and the procedure if appropriate. The assessment and plan as outlined above was discussed with the patient and/or family members who expressed understanding and agreement. All questions were answered. Qualifiers: Coronary Disease-Associated Artery/Lesion type: [place] artery [place] vs. transplanted heart: [place] heart Associated angina: with unstable angina Qualified Code(s): I25.110 - Atherosclerotic heart disease of [place] coronary artery with unstable angina pectoris - History of Present Illness Consult date: 01/03/18 Requesting physician: Nicky Ramos Consult reason: CABG evaluation Chief complaint: Substernal chest pain History of present illness: Mr. Morrison is a 82 year old hypertensive man with known CAD and hypercholesterolemia. The patient's cardiac history dates back to at least 2010 when he underwent PCI with stent placement 3. He states that 1 procedures performed at her side [facility] in [facility] and a second procedure was performed at [facility]. He has been in good health, working each day until the last 1-2 months. He would occasionally experiencing exertional substernal chest pain and intrascapular pain. The symptoms would typically resolve with rest and sublingual nitroglycerin. Last week, the patient had severe, unrelenting substernal chest pain and intrascapular pain. He was evaluated at [facility] and transferred to [facility] for further care. During this hospitalization the patient had no elevation of troponin I levels and he was recommended for an outpatient cardiac workup. The patient underwent a nuclear stress test which revealed an LVEF 62% and no evidence of ischemia or infarction. However, given the patient's presenting symptoms, cardiac risk profile, and prior cardiac interventions, he was recommended for cardiac catheterization. This procedure was performed today and revealed severe 3 vessel CAD. In particular, the patient has a 70-80% distal left main lesion, a 70% proximal LAD lesion (small vessel), a 99% proximal ramus intermediate branch lesion (small vessel), and a 50% proximal LCx lesion. He has been recommended for possible high risk CABG. Past Med Surg Social Fam HX - Past Medical History Medical history: cancer (Right renal cell carcinoma), coronary artery disease, hyperlipidemia, hypertension Additional medical history: neuropathy, vertigo Psychiatric history: no psych history - Past Surgical History Surgical History: angioplasty/stent, other (Right nephrectomy) Additional surgical history: Right nephrectomy - Social History Smoking Status: Never smoker Smokeless Tobacco Status: No Alcohol use: none Drug use: none Occupational status: employed Current living situation: Home - Independent Activity Level: Independent ambulation, Very active Recent Out of Country Travel Within the Last 8 Weeks: No Exposure or Possible Exposure to Illness During Travel: No - Family History Father Living Status: Hx Family Cardiac Disorders: Yes Hx Family Respiratory Disorders: No Hx Family Cancer: No Hx Family GI Disorders: No Hx Family Endocrine Disorder: No Hx Family Neuromuscular Disorders: No Hx Family Neurologic Disorders: No Medications and Allergies Aspirin [Lo-Dose Aspirin EC] 81 mg PO DAILY 12/22/17 [History] Atorvastatin [Lipitor] 40 mg PO HS 12/22/17 [History] Carvedilol [Coreg] 25 mg PO BID 12/22/17 [History] Cholecalciferol (D-3) [Vitamin D] 5,000 unit PO DAILY 12/22/17 [History] Clopidogrel [Plavix] 75 mg PO DAILY 12/22/17 [History] Losartan/Hydrochlorothiazide [Losartan-Hctz 100-25 mg Tab] 1 tab PO DAILY [History] Nitroglycerin [Nitrostat] 0.4 mg SL Q5M PRN MDD 3 DOSES CALL 911 12/22/17 [ History] [place]-3/Dha/Epa/Fish Oil [Fish Oil 1,000 mg Softgel] 1 cap PO DAILY 12/22/17 [ History] Zolpidem [Ambien] 5 mg PO HS 12/22/17 [History] Tramadol HCl [Ultram] 50 mg PO TID PRN 7 Days #20 tab 12/23/17 [Rx] hydrALAZINE [HydrALAZINE] 10 mg PO Q6HR 01/03/18 [History] 3 Allergy/AdvReac Type Severity Reaction Status Date / Time amlodipine [From [facility]] Allergy Hives Verified 01/03/18 07:44 Iodinated Contrast- Oral and Allergy Anaphylaxis Verified 01/03/18 07:44 IV Dye iodine AdvReac Swelling Verified 10/28/16 11:15 of Lip/Tongue/Throat lisinopril AdvReac Cough Verified 01/03/18 07:44 shellfish derived AdvReac Swelling Verified 10/28/16 11:15 of Lip/Tongue/Throat All Systems Review: The remainder of the systems were reviewed and are negative Physical Examination Vital Signs, Last 4 Hours Temp Pulse Resp BP Pulse Ox 01/03/18 14:44 97.6 F 84 18 145/86 95 General: Conversant, No Apparent Distress HEENT: Atraumatic, Normocephaly, Trachea midline Neck: No JVD Cardiac: Reg Rate and Rhythm, Normal S1 and S2, No Murmur Lungs: Normal Breath Sounds, No Wheeze, Rales, Rhonchi Neuro: Alert and responsive, No focal deficits noted Vascular: Normal capillary refill Abdomen: Soft, Non-tender Musculoskeletal: No Chest Wall Tenderness Extremities: No Clubbing, No Cyanosis, No Edema Consult Discharge Plan - Plan Referrals: Sharath Fraser MD [Partnered Physician] - Anibal De Luna MD [Primary Care Provider] -
[2018-01-03 16:44] VITALS: BP 136/71
[2018-01-04] MEDS ORDERED: *HR* Enoxaparin 40 MG/0.4 ML SYRINGE SQ SCH (06:00)
[2018-01-04] MEDS ORDERED: Omega-3/Dha/Epa/Fish Oil [Fish Oil 1,000 Mg Softgel] PO SCH (09:00)
[2018-01-04] MEDS ORDERED: Losartan/HCTZ 50-12.5 TABLET PO SCH (09:00)
[2018-01-04] MEDS ORDERED: Aspirin Enteric Coated 81 MG Tablet PO SCH (09:00)
[2018-01-04] MEDS ORDERED: Cholecalciferol (D-3) 1,000 UNIT TABLET PO SCH ×2 (09:00)
--- NOTE | 2018-01-04 16:49 | Electrocardiograph Report ---
[place] [id number] Test Date: 2018-01-03 Pat Name: Spike Morrison Department: 112 Room: 2A39 Gender: M Director Of Broadcast: : 1935 Requested By: Nicky Ramos Order Number: [id number] Reading MD: Jesús Chaidez Measurements Intervals [place] Rate: 88 P: 57 TX: 177 QRS: 22 QRSD: 91 T: 34 QT: 325 QTc: 370 Interpretive Statements SINUS RHYTHM NONSPECIFIC ST-T CHANGES Electronically Signed On 01-04-2018 16:47:33 EDT by Jesús Chaidez
== END 2018-01-03 17:20 | disposition critical access hospital (66) | DRG 287 ==
LOC: INVDIALAB 07:29 → 2ANU 09:47
PROVIDERS: ADMIT Internal Medicine Interventional Cardiology; ATTEND Internal Medicine Interventional Cardiology